=== PATIENT | female | born 1955 | race Caucasian/White ===

== ENCOUNTER 2018-08-04 19:29 | Emergency (ER) | payer SELFPAY ==
[~2018-08-04] VITALS: Ht 170.2 cm; Wt 86.2 kg
--- OUTSIDE RECORDS SUMMARY | ~2018-08-04 | XMS | Clinical Summary ---
Demographics + + + | Address | [address] | | | [place] [address] | + + + | Home Phone | | + + + | Preferred Language | Unknown | + + + | Marital Status | | + + + | Denominational Affiliation | Unknown | + + + | Race | Unknown | + + + | Ethnic Group | Unknown | + + + Author + + + | Author | [facility] | | | and [place] | + + + | Organization | [facility] | | | and [place] | + + + | Address | Unknown | + + + | Phone | Unavailable | + + + Support + + +---------+ + | Name | Relationship | Address | Phone | + + +---------+ + | Farhat Escamilla | ECON | Unknown | | + + +---------+ + Care Team Providers + +------+ + | Care Enterprise Engineer Name | Role | Phone | + +------+ + PP | Unavailable | + +------+ + Allergies Not on File Current Medications Not on file Active Problems Not on file Social History + +-------+ +--------+------+ | Tobacco Use | Types | Packs/Day | Years | Date | | | | | Used | | + +-------+ +--------+------+ | Never Assessed | | | | | + +-------+ +--------+------+ + + + | Sex Assigned at | Date Recorded | | | | + + + | Not on file | | + + + Plan of Treatment + + + + + | Health Maintenance | Due Date | Last Done | Comments | + + + + + | Vaccine: | | | | | Dtap/Tdap/Td (1 - | 4 | | | | Tdap) | | | | + + + + + | Cervical Cancer | | | | | Screening (Pap) | 5 | | | + + + + + | Vaccine: Zoster (1 | | | | | of 2) | 5 | | | + + + + + | Vaccine: Influenza | | | | | (#1) | 8 | | | + + + + + Results Not on filefrom Last 3 Months"
--- OUTSIDE RECORDS SUMMARY | ~2018-08-04 | XMS | Clinical Summary ---
Demographics + + + | Address | [address] | | | [place] [address] | + + + | Home Phone | | + + + | Preferred Language | Unknown | + + + | Marital Status | | + + + | Voodoo Affiliation | Unknown | + + + | Race | Unknown | + + + | Ethnic Group | Unknown | + + + Author + + + | Author | [facility] | | | and [place] | + + + | Organization | [facility] | | | and [place] | [...] Team Providers + +------+ + | Care Material Damage Appraiser Name | Role | Phone | + [...]
[~2018-08-04 19:29] MED LIST: ASPIRIN EC325 MG PO; CALCIUM 600 +1 EACH PO; LEVOTHROID75 MCG PO; PILOCARPINE HCL5 MG PO; VALSARTAN-HCTZ1 EAC1 PO; VITAMIN D-32000 UNIT PO
[2018-08-04] MEDS ORDERED: DIOVAN HCT 80-1 EACH PO (22:40)
--- NOTE | 2018-08-05 07:57 | EKG ---
[facility] [address] [facility] [place], [place] [address] Signed Normal sinus rhythm Normal ECG No previous ECGs available Confirmed by FREDY HERBERT MD ([id number]) on 08/05/2018 7:57:33 AM Electronically Signed By: FREDY HERBERT MD 08/05/18 0757 PATIENT NAME: JEFFREY HILL Electrocardiogram DATE OF : 55 PHYSICIAN: FREDY HERBERT MD REPORT #: [id number] REPORT IS CONFIDENTIAL AND NOT TO BE RELEASED WITHOUT AUTHORIZATION
== END 2018-08-04 22:49 | disposition home or self-care (01) ==
LOC: ED 19:29
DX: J02.9 Acute pharyngitis, unspecified (principal); I10 Essential (primary) hypertension; M32.9 Systemic lupus erythematosus, unspecified; Z90.710 Acquired absence of both cervix and uterus; Z90.49 Acquired absence of other specified parts of digestive tract; Z88.0 Allergy status to penicillin; Z88.2 Allergy status to sulfonamides; Z79.82 Long term (current) use of aspirin; Z79.899 Other long term (current) drug therapy
CPT/HCPCS: 36415; 80053; 81001; 85025; 93005; 93010; 99283-25

== ENCOUNTER 2025-03-04 09:28 | Emergency (ER) | payer MEDICARE ==
[~2025-03-04] VITALS: Ht 170.2 cm; Wt 87.5 kg
[~2025-03-04 09:28] MED LIST changes: +DIOVAN HCT 80-1 EACH PO
[2025-03-04] MEDS ORDERED: ASPIRIN 81 MG CHEW ONE (09:34)
[2025-03-04 09:38] LABS: BASOPHILS 0.8 % (0.1-1.2); EOSINOPHILS 0.3 % (0.7-5.8); LYMPHOCYTES 14.4 % (19.3-51.7); MCH 28.8 PG (25.6-32.2); MCHC 33.9 g/dL (32.2-35.5); MCV 85.1 fL (79.4-94.8); MONOCYTES 6.5 % (4.7-12.5); NEUTROPHILS 77.7 % (34.0-71.1); RBC 4.55 M/uL (3.93-5.22)
[2025-03-04] MEDS ORDERED: HEPARIN SOD,PORK IN 0.45% NACL 500 ML IV SCH (09:45)
[2025-03-04] MEDS ORDERED: CLOPIDOGREL BISULFATE 75 MG TAB PO ONE (09:45)
[2025-03-04] MEDS ORDERED: ASPIRIN 81 MG CHEW PO ONE (09:45)
[2025-03-04] MEDS ORDERED: NITROGLYCERIN 0.4 MG SUBL SL PRN (09:45)
[2025-03-04 09:57] LABS: ALT (SGPT) 19.0 U/L (14-59); AST (SGOT) 89.0 U/L (15-37); GLOMERULAR FILTRATION RATE,EST 59.0 mL/min (>60); PROTEIN, TOTAL 9.2 g/dL (6.4-8.2); UREA NITROGEN 20.0 mg/dL (7-18)
[2025-03-04 09:58] VITALS: BP 124/90
--- NOTE | 2025-03-07 07:35 | EKG ---
[facility] [address] [facility] [place] [address] Signed Sinus tachycardia Low voltage QRS Cannot rule out Anterior infarct , new Inferolateral injury pattern ACUTE NC / STEMI Abnormal ECG When compared with ECG of 04-AUG-2018 21:09, Vent. rate has increased BY 37 BPM QRS voltage has decreased Acute Anterior infarct is now present Confirmed by Javier Almonte DO ([id number]) on 03/07/2025 7:35:31 AM Electronically Signed By: JAVIER ALMONTE DO 03/07/25 0735 PATIENT NAME: JEFFREY HILL Electrocardiogram DATE OF : 55 PHYSICIAN: JAVIER ALMONTE DO REPORT #: [id number] REPORT IS CONFIDENTIAL AND NOT TO BE RELEASED WITHOUT AUTHORIZATION
== END 2025-03-04 09:58 | disposition short-term general hospital (02) ==
LOC: ED 09:28
PROVIDERS: Emergency Medicine
DX: I21.3 ST elevation (STEMI) myocardial infarction of unspecified site (principal); Z88.0 Allergy status to penicillin; Z88.2 Allergy status to sulfonamides; Z79.899 Other long term (current) drug therapy; Z79.82 Long term (current) use of aspirin
CPT/HCPCS: 36415; 80053; 83735; 84484; 85025; 93005; 93010; 94799; 96374; 99285-25; J1644